=== PATIENT | male | born 1975 | race Caucasian/White ===

== ENCOUNTER 2018-01-19 22:54 | Emergency (ER) | payer SELFPAY ==
[~2018-01-19] VITALS: Ht 188 cm; Wt 81.6 kg
[2018-01-19 23:05] VITALS: BP 141/78
== END 2018-01-20 04:50 | disposition left against medical advice (07) ==
LOC: ER 22:58
DX: R41.82 Altered mental status, unspecified (principal); Z53.21 Procedure and treatment not carried out due to patient leaving prior to being seen by health care provider